=== PATIENT | male | born 1985 | race Caucasian/White ===

== ENCOUNTER → 2022-02-26 | Outpatient (REF) | payer BC | LOC: M SMT 13:23 | PROVIDERS: ATTEND Urology | DX: Z30.2 Encounter for sterilization (principal) ==

== ENCOUNTER → 2022-04-29 | Outpatient (REF) | payer BC ==
[2022-04-29 10:55] LABS: SEMEN APPEARANCE OPAQUE (OPAQUE)
[2022-04-29 10:56] LABS: SEMEN VISCOSITY VISCOUS (LIQUID); SEMEN VOLUME 5.5 ml (2.0-5.0); WBC CONCENTRATION >1 M/ml (<=1 M/ml)
== END ==
LOC: M SMT 10:16
PROVIDERS: ATTEND Urology
DX: Z30.2 Encounter for sterilization (principal)

== ENCOUNTER → 2022-06-05 | Outpatient (REF) | payer BC ==
[2022-06-05 12:57] LABS: SEMEN APPEARANCE OPAQUE (OPAQUE); SEMEN VISCOSITY LIQUID (LIQUID); SEMEN VOLUME 6.3 ml (2.0-5.0)
[2022-06-05 12:58] LABS: WBC CONCENTRATION >1 M/ml (<=1 M/ml)
== END ==
LOC: M SMT 11:42
PROVIDERS: ATTEND Urology
DX: Z98.52 Vasectomy status (principal)

== ENCOUNTER 2022-12-01 06:39 | Day surgery (SDC) | payer BC ==
[~2022-12-01] VITALS: Ht 175.3 cm; Wt 132.4 kg
[~2022-12-01 06:39] MED LIST: CLAR10CA3 PO; LEXA5TAB13 PO; LOSA100T46 PO; METF-838 PO; NS 1,000 ML IV ONE; OMEP10CASR PO; SEMA0.257 SC
[2022-12-01] MEDS ORDERED: propofoL 200 MG/20 ML VIAL As Ordered ONE (07:02)
[2022-12-01] MEDS ORDERED: LIDOCAINE 2% 100MG/5ML SDV (FOR ANES.) As Ordered ONE (07:02)
[2022-12-01 08:27] VITALS: BP 146/78; O2SAT 99
== END 2022-12-01 08:26 | disposition home or self-care (01) ==
LOC: M OPP 06:39
PROVIDERS: ATTEND Internal Medicine Gastroenterology
DX: Z12.11 Encounter for screening for malignant neoplasm of colon (principal); Z86.010 Personal history of colon polyps; D12.4 Benign neoplasm of descending colon; K63.5 Polyp of colon; K64.8 Other hemorrhoids; Z79.84 Long term (current) use of oral hypoglycemic drugs; Z79.899 Other long term (current) drug therapy; Z87.891 Personal history of nicotine dependence